=== PATIENT | male | born 1980 | race African-American/Black ===

== ENCOUNTER → 2019-09-06 | Outpatient (CLI) | payer OTHER ==
--- NOTE | 2019-09-06 08:58 | REP ---
Lumbar spine five views: There are no comparisons. There is mild scoliosis convex right, possibly positional. Vertebral body heights, interspacing alignment are normal. There is no spondylolysis. There is no spondylolisthesis. The pedicles and facets are unremarkable. The sacroiliac articulations are unremarkable. Impression: Mild scoliosis convex right, possibly positional. Otherwise, negative lumbar spine. Electronically Signed by Cain Martinez MD 09/06/2019 08:50 A
== END ==
LOC: M RAD 08:18
PROVIDERS: ATTEND Surgery
DX: M54.5 Low back pain (principal); X50.0XXA Overexertion from strenuous movement or load, initial encounter